=== PATIENT | female | born 1955 | race American Indian/Alaskan Native ===

== ENCOUNTER 2016-10-21 14:29 | Inpatient (IN) | payer MEDICARE, OTHER ==
[2016-10-21] MEDS ORDERED: Iohexol 240 (50 ml) PO ONE (14:42)
[2016-10-21] MEDS ORDERED: Sodium Chloride 0.9% 1,000 ML IV STA ×2 (14:45→21:39)
--- NOTE | 2016-10-21 14:50 | ED PDOC ---
HPI: Abdomen Time Seen by Provider: 10/21/16 14:30 Chief Complaint (Nursing): Abdominal Pain Chief Complaint (Provider): abd pain History Per: Patient History/Exam Limitations: no limitations Onset/Duration Of Symptoms: Days (2 weeks) Outside of [place] travel?: No Current Symptoms Are (Timing): Still Present Severity: Severe Location Of Pain/Discomfort: Epigastric (radiating to BUQ and back pain) Associated Symptoms: Chills, Nausea, Vomiting, Diarrhea, Loss Of Appetite, Back Pain. denies: Fever, Constipation, Urinary Symptoms Exacerbating Factors: Food Alleviating Factors: None Additional Complaint(s): vomiting nonbilious nonbloody intermittent for 2 weeks, diarrhea watery nonbloody, unable to tolerate food for 3 days Past Medical History Reviewed: Historical Data, Nursing Documentation, Vital Signs Vital Signs: Last Vital Signs Temp 98.9 F 10/21/16 14:30 Pulse 54 L 10/21/16 14:30 Resp 20 10/21/16 14:30 BP 128/65 10/21/16 14:30 Pulse Ox 98 10/21/16 20:28 - Medical History PMH: CAD (2 stents), Gastritis, Hepatitis, HIV, HTN, Hypercholesterolemia - Surgical History Surgical History: Cholecystectomy, Coronary Stent - Family History Family History: States: No Known Family Hx - Social History Current smoker - smoking cessation education provided: Yes Alcohol: None - Allergies Allergies/Adverse Reactions: Allergies Allergy/AdvReac Type Severity Reaction Status Date / Time dapsone Allergy Verified 10/21/16 14:47 Sulfa (Sulfonamide Allergy Verified 10/21/16 14:47 Antibiotics) Review of Systems ROS Statement: Except As Marked, All Systems Reviewed And Found Negative (and as per HPI) Constitutional: Positive for: Chills, Weakness, Malaise. Negative for: Fever Gastrointestinal: Positive for: Nausea, Vomiting, Abdominal Pain, Diarrhea. Negative for: Melena, Hematochezia, Hematemesis Genitourinary Female: Negative for: Dysuria, Frequency Musculoskeletal: Positive for: Back Pain Physical Exam - Reviewed Nursing Documentation Reviewed: Yes Vital Signs Reviewed: Yes - Physical Exam Appears: Positive for: Uncomfortable, In Acute Distress Head Exam: Positive for: ATRAUMATIC, NORMOCEPHALIC Skin: Positive for: Warm, Dry Eye Exam: Positive for: EOMI, PERRL ENT: Positive for: Other (dry muc membranes). Negative for: Pharyngeal Erythema , Tonsillar Exudate Neck: Positive for: Supple. Negative for: Limited ROM Cardiovascular/Chest: Positive for: Chest Non Tender, Bradycardia (regular rhythm). Negative for: Murmur Respiratory: Positive for: Normal Breath Sounds. Negative for: Respiratory Distress Gastrointestinal/Abdominal: Positive for: Bowel Sounds, Soft, Tenderness ( epigastric). Negative for: Mass, Distended, Guarding, Rebound Back: Positive for: Normal Inspection. Negative for: Vertebral Tenderness Extremity: Positive for: Normal ROM. Negative for: Pedal Edema, Deformity Lymphatic: Negative for: Adenopathy Neurologic/Psych: Positive for: Alert. Negative for: Motor/Sensory Deficits - Laboratory Results Result Diagrams: 10/21/16 16:00 10/21/16 16:00 - ECG O2 Sat by Pulse Oximetry: 98 Medical Decision Making Medical Decision Making: Pt with intractable vomiting, h/o HIV, and abnormality on CT for stomach mass v ulcer. Hospitalized for further evaluation and management. ED OBSERVATION - Observation admission statement Patient is being placed in observation because:: Time intensive workup and need for serial abdominal exams to exclude surgical condition - Goals of Observation Goals of observation are:: Completion of diagnostics, improvement of symptoms, and initiation of definitive care based on diagnostics, if possible - Progress Note Progress Note: Accession No. : [id number] Patient Name / ID : BILL MEEKS / [id number] Exam Date : 10/21/2016 18:57:05 ( Approved ) Study Comment : Sex / Age : F / 61Y Creator : Patti Rebolledo MD Dictator : Allied Health Instructor : Exam Proctor : Patti Rebolledo MD Approver2 : Report Date : 10/21/2016 20:14:00 My Comment : [facility] Division of Radiology [address] [place] [address] Tel. no. Patient Name: JEANNA KHAN Pt. Address: [address] [place] [address] 2 Med. Rec #: [id number] [place] [address]: Alonzo HAM, Bobbi Bowman Pt CELL Order Location: [place] : 1955 Female Age: 61 Order #: [id number] Reason for exam: Abd pain CT Scan ABD PELVIS PO CONTRAST ONLY Exam Date: 10/21/16 This imaging exam was performed at [facility] EXAM: CT Abdomen and Pelvis Without Intravenous Contrast CLINICAL HISTORY: 61 years old, female; Pain; Abdominal pain; Generalized; Additional info: Abd pain TECHNIQUE: Axial computed tomography images of the abdomen and pelvis without intravenous contrast. This CT exam was performed using one or more of the following dose reduction techniques: automated exposure control, adjustment of the mA and/or kV according to patient size, and/or use of iterative reconstruction technique. Coronal and sagittal reformatted images were created and reviewed. EXAM DATE/TIME: 10/21/2016 4:58 PM COMPARISON: Prior abdominal ultrasound of 08/25/2015 FINDINGS: LOWER THORAX: No infiltrate seen in the lung bases. ABDOMEN: LIVER: No acute abnormality of the liver identified. GALLBLADDER AND BILE DUCTS: Cholecystectomy clips.. PANCREAS: No CT evidence of acute pancreatitis. SPLEEN: No acute abnormality of the spleen identified. ADRENALS: No acute abnormality of the adrenal glands identified. KIDNEYS AND URETERS: Multiple hyperdense lesions in the kidneys bilaterally , too numerous to count, the largest of which is located in the left kidney, and measures 3 cm. These could represent hyperdense cysts, but cannot entirely rule out solid lesions. Recommend further evaluation with renal ultrasound or renal protocol CT or MRI, on a nonemergent basis. Bilateral renal scarring. No evidence of hydroureteronephrosis. STOMACH AND BOWEL: Best seen on image 72 of series 602, there is a 2.5 cm, round, masslike area containing air within it centrally, located posterior to the wall of the distal stomach. This appears separate from the duodenal bulb. It has a thick wall, and there is mild infiltration of the adjacent fat. This is suspicious for a posterior gastric ulcer. There is no evidence of free air/perforation. 2.6 cm round, well-defined, fat density lesion in the lumen of the descending colon, most likely representing a large lipoma. This does not appear to be causing obstruction. Otherwise, no significant abnormality of the bowel is identified. No evidence of small bowel obstruction. No evidence of diverticulitis. APPENDIX: Appendix is seen, and is within normal limits in appearance. PELVIS: BLADDER: No acute abnormality of the bladder identified. REPRODUCTIVE: 2.2 cm fluid density ovarian/adnexal cystic lesion. This has a benign appearance by CT. No followup is warranted based on the imaging findings, unless otherwise clinically indicated. Multiple uterine calcifications, most likely secondary to fibroids. ABDOMEN and PELVIS: INTRAPERITONEAL SPACE: No evidence of free air or free fluid. BONES/JOINTS: No acute fractures or other acute bony abnormality noted. SOFT TISSUES: No acute abnormality of the visualized soft tissues is seen. VASCULATURE: No evidence of abdominal aortic aneurysm. No evidence of periaortic hemorrhage. LYMPH NODES: No evidence of diffuse lymphadenopathy. IMPRESSION: - Findings suspicious for a small posterior gastric ulcer, with adjacent mild inflammation. There is no evidence of free air/ulcer perforation. Recommend clinical correlation. - Otherwise, no evidence of significant acute process. - Incidental multiple, bilateral indeterminate hyperdense renal lesions. See above. - See above for remaining findings. Dictated By: Patti Rebolledo MD Dictated Date/Time: 10/21/162013 Signed By: Patti Rebolledo MD Date Signed: 2013 Transcribed By: ANDREW Transcribe Date/Time : 10/21/162013 [id number]/STANLEY MELÉNDEZ pt findings and plan of care RIKA NORMAN resident for hospitalization Disposition - Clinical Impression Clinical Impression: Abdominal pain, Intractable vomiting - Disposition Disposition Time: 15:00 Condition: GUARDED - Pt Status Changed To: Hospital Disposition Of: Inpatient - Admit Certification Admit to Inpatient:: After my assessment, the patient will require hospitalization for at least two midnights. This is because of the severity of symptoms shown, intensity of services needed, and/or the medical risk in this patient being treated as an outpatient. - POA Present On Arrival: None
[2016-10-21 16:23] LABS: BASO # 0.1 K/uL (0.0-0.2); BASO % 0.8 % (0.0-2.0); EOS % 0.4 % (0.0-4.0); HEMATOCRIT 35.4 % (34.0-47.0); LYMPH # 2.1 K/uL (1.0-4.3); LYMPH % 26.9 % (20.0-40.0); MEAN CELL VOLUME 91.6 fl (81.0-99.0); MEAN CORPUSCULAR HEMOGLOBIN 29.8 pg (27.0-31.0); MEAN CORPUSCULAR HGB CONC 32.5 g/dL (33.0-37.0); MEAN PLATELET VOLUME 9.1 fl (7.2-11.7); MONO # 0.7 K/uL (0.0-0.8); MONO % 8.5 % (0.0-10.0); NEUT # 4.9 K/uL (1.8-7.0); NEUT % 63.4 % (50.0-75.0); RED CELL DISTRIBUTION WIDTH 14.5 % (11.5-14.5); WHITE BLOOD COUNT 7.7 K/uL (4.8-10.8)
[2016-10-21 16:33] LABS: VENOUS BLOOD GAS BASE EXCESS 5.1 mmol/L (0.0-2.0); VENOUS BLOOD GAS PCO2 47 mmHg (40-60); VENOUS BLOOD PH 7.42 (7.32-7.43)
[2016-10-21 16:36] LABS: PARTIAL THROMBOPLASTIN TIME 31.2 Seconds (25.6-37.1)
[2016-10-21 16:37] LABS: BILIRUBIN,TOTAL 0.6 mg/dl (0.2-1.3); CALCIUM 10.4 mg/dL (8.4-10.2); MAGNESIUM 1.9 MG/DL (1.6-2.3); PHOSPHOROUS 2.9 mg/dl (2.5-4.5); POTASSIUM 3.7 MMOL/L (3.6-5.0); TOTAL PROTEIN 8.1 G/DL (6.3-8.2)
[2016-10-21] MEDS ORDERED: Iohexol 240 (50 ml) ONE (16:37)
[2016-10-21 17:06] LABS: THYROID STIMULATING HORMONE 1.82 mIU/ML (0.46-4.68)
--- NOTE | 2016-10-21 20:14 | CT ---
EXAM: CT Abdomen and Pelvis Without Intravenous Contrast CLINICAL HISTORY: 61 years old, female; Pain; Abdominal pain; Generalized; Additional info: Abd pain TECHNIQUE: Axial computed tomography images of the abdomen and pelvis without intravenous contrast. This CT exam was performed using one or more of the following dose reduction techniques: automated exposure control, adjustment of the mA and/or kV according to patient size, and/or use of iterative reconstruction technique. Coronal and sagittal reformatted images were created and reviewed. EXAM DATE/TIME: 10/21/2016 4:58 PM COMPARISON: Prior abdominal ultrasound of 08/25/2015 FINDINGS: LOWER THORAX: No infiltrate seen in the lung bases. ABDOMEN: LIVER: No acute abnormality of the liver identified. GALLBLADDER AND BILE DUCTS: Cholecystectomy clips.. PANCREAS: No CT evidence of acute pancreatitis. SPLEEN: No acute abnormality of the spleen identified. ADRENALS: No acute abnormality of the adrenal glands identified. KIDNEYS AND URETERS: Multiple hyperdense lesions in the kidneys bilaterally, too numerous to count, the largest of which is located in the left kidney, and measures 3 cm. These could represent hyperdense cysts, but cannot entirely rule out solid lesions. Recommend further evaluation with renal ultrasound or renal protocol CT or MRI, on a nonemergent basis. Bilateral renal scarring. No evidence of hydroureteronephrosis. STOMACH AND BOWEL: Best seen on image 72 of series 602, there is a 2.5 cm, round, masslike area containing air within it centrally, located posterior to the wall of the distal stomach. This appears separate from the duodenal bulb. It has a thick wall, and there is mild infiltration of the adjacent fat. This is suspicious for a posterior gastric ulcer. There is no evidence of free air/perforation. 2.6 cm round, well-defined, fat density lesion in the lumen of the descending colon, most likely representing a large lipoma. This does not appear to be causing obstruction. Otherwise, no significant abnormality of the bowel is identified. No evidence of small bowel obstruction. No evidence of diverticulitis. APPENDIX: Appendix is seen, and is within normal limits in appearance. PELVIS: BLADDER: No acute abnormality of the bladder identified. REPRODUCTIVE: 2.2 cm fluid density ovarian/adnexal cystic lesion. This has a benign appearance by CT. No followup is warranted based on the imaging findings, unless otherwise clinically indicated. Multiple uterine calcifications, most likely secondary to fibroids. ABDOMEN and PELVIS: INTRAPERITONEAL SPACE: No evidence of free air or free fluid. BONES/JOINTS: No acute fractures or other acute bony abnormality noted. SOFT TISSUES: No acute abnormality of the visualized soft tissues is seen. VASCULATURE: No evidence of abdominal aortic aneurysm. No evidence of periaortic hemorrhage. LYMPH NODES: No evidence of diffuse lymphadenopathy. IMPRESSION: - Findings suspicious for a small posterior gastric ulcer, with adjacent mild inflammation. There is no evidence of free air/ulcer perforation. Recommend clinical correlation. - Otherwise, no evidence of significant acute process. - Incidental multiple, bilateral indeterminate hyperdense renal lesions. See above. - See above for remaining findings.
--- NOTE | 2016-10-21 21:51 | CP.PCM.HP ---
History of Present Illness - History of Present Illness History of Present Illness: Pt. presents to the emergency room with complaint of abdominal pain. Pt. was sent to the emergency department by PMD because of abdominal pain. Pt. states abdominal pain started two weeks ago, localized in the epigastric area, radiating to RT. and LT. upper quadrants. Pt. reports had one episode of vomiting this morning described as greenish yellowish in color and two episodes of watery diarrhea. Associated symptoms include weight loss of 20lbs over past 2 months and loss of appetite. Pt. states most of her symptoms have been present for approximately 2 months but abdominal pain started 2 weeks ago. ON ROS, Pt. denies any dysphasia, hemoptysis, hematemesis, fever, or chills. Pt. reports other symptoms of feeling lightheaded, weakness that is generalized, . Pt denies any sick contacts, recent travel, or alcohol use. Pt. also reports was given a referral for Colonoscopy but was unable to see GI as of yet. PMHx: HIV, HTN, Hyperlipidemia, Coronary Heart Disease, Hepatitis C, Chronic Kidney Disease Stage IV not on HD, Type II NIDDM, Gallstones, Renal Stones PSHx: Cardiac stent, Appendectomy, "Neck" surgery FMHx: Father at age 76 due complications from Colon Cancer Social: TOB- Social ETOH- Denies Drugs- Denies Allergies: Sulfa, Dapsone Home Meds: See Med List PMD: Dr. Waylon Parker Course 1- I.V. Fluids 2- Pepcid, Zofran, Morphine 3- CBC, CMP, UA, EKG CT Scan - ABD PELVIS PO CONTRAST ONLY Exam Date: 10/21/16 IMPRESSION: - Findings suspicious for a small posterior gastric ulcer, with adjacent mild inflammation. There is no evidence of free air/ulcer perforation. Recommend clinical correlation. - Otherwise, no evidence of significant acute process. - Incidental multiple, bilateral indeterminate hyperdense renal lesion. Present on Admission - Present on Admission Any Indicators Present on Admission: Yes History of DVT/PE: No History of Uncontrolled Diabetes: Yes Urinary Catheter: No Decubitus Ulcer Present: No Review of Systems - Review of Systems Review of Systems: See HPI Past Patient History - Past Social History Alcohol: None - CARDIAC Hx Hypercholesterolemia: Yes Hx Hypertension: Yes - HEMATOLOGICAL/ONCOLOGICAL Hx Human Immunodeficiency Virus (HIV): Yes - GASTROINTESTINAL Hx Gastritis: Yes - PSYCHIATRIC Hx Substance Use: No - SURGICAL HISTORY Hx Cholecystectomy: Yes Hx Coronary Stent: Yes Meds Allergies/Adverse Reactions: Allergies Allergy/AdvReac Type Severity Reaction Status Date / Time dapsone Allergy Verified 10/21/16 14:47 Sulfa (Sulfonamide Allergy Verified 10/21/16 14:47 Antibiotics) Physical Exam - Constitutional Appears: Non-toxic, No Acute Distress - Head Exam Head Exam: ATRAUMATIC, NORMOCEPHALIC - Eye Exam Eye Exam: PERRL. absent: Scleral icterus - ENT Exam ENT Exam: Mucous Membranes Moist, Normal Oropharynx - Neck Exam Neck exam: Positive for: Full Rom, Normal Inspection - Respiratory Exam Respiratory Exam: Clear to Auscultation Bilateral, NORMAL BREATHING PATTERN - Cardiovascular Exam Cardiovascular Exam: Bradycardia, +S1, +S2 - GI/Abdominal Exam GI & Abdominal Exam: Normal Bowel Sounds, Soft, Tenderness (+Positive Epigastric Area) - Extremities Exam Extremities exam: Positive for: pedal pulses present. Negative for: calf tenderness - Neurological Exam Neurological exam: Alert, Oriented x3 - Psychiatric Exam Psychiatric exam: Normal Affect, Normal Mood Results - Vital Signs Recent Vital Signs: Last Vital Signs Temp 98.9 F 10/21/16 14:30 Pulse 54 L 10/21/16 14:30 Resp 20 10/21/16 14:30 BP 128/65 10/21/16 14:30 Pulse Ox 98 10/21/16 20:28 - Labs Result Diagrams: 10/21/16 16:00 10/21/16 16:00 Labs: Laboratory Results - last 24 hr 10/21/16 10/21/16 10/21/16 16:00 16:00 16:00 WBC 7.7 RBC 3.86 Hgb 11.5 L Hct 35.4 MCV 91.6 MCH 29.8 MCHC 32.5 L RDW 14.5 Plt Count 159 MPV 9.1 Neut % (Auto) 63.4 Lymph % (Auto) 26.9 [place] % (Auto) 8.5 Eos % (Auto) 0.4 Baso % (Auto) 0.8 Neut # 4.9 Lymph # 2.1 [place] # 0.7 Eos # 0.0 Baso # 0.1 PT 12.8 INR 1.1 APTT 31.2 pO2 VBG pH VBG pCO2 VBG HCO3 VBG Total CO2 VBG O2 Sat (Calc) VBG Base Excess VBG Potassium Glucose Lactate FiO2 Sodium 140 Potassium 3.7 Chloride 105 Carbon Dioxide 26 Anion Gap 13 BUN 32 H Creatinine 2.6 H Est GFR ( Amer) 22 Est GFR (Non-Af Amer) 19 Random Glucose 77 Calcium 10.4 H Phosphorus 2.9 Magnesium 1.9 Total Bilirubin 0.6 AST 32 ALT 36 Alkaline Phosphatase 48 Lactate Dehydrogenase 433 Total Protein 8.1 Albumin 3.9 Globulin 4.1 H Albumin/Globulin Ratio 1.0 Amylase 124 H Lipase 172 TSH 3rd Generation 1.82 Venous Blood Potassium 10/21/16 16:30 WBC RBC Hgb Hct MCV MCH MCHC RDW Plt Count MPV Neut % (Auto) Lymph % (Auto) [place] % (Auto) Eos % (Auto) Baso % (Auto) Neut # Lymph # [place] # Eos # Baso # PT INR APTT pO2 8 L VBG pH 7.42 VBG pCO2 47 VBG HCO3 26.5 VBG Total CO2 31.9 H VBG O2 Sat (Calc) 34.4 L VBG Base Excess 5.1 H VBG Potassium 3.6 Glucose 78 Lactate 1.0 FiO2 21.0 Sodium 137.0 Potassium Chloride 107.0 Carbon Dioxide Anion Gap BUN Creatinine Est GFR ( Amer) Est GFR (Non-Af Amer) Random Glucose Calcium Phosphorus Magnesium Total Bilirubin AST ALT Alkaline Phosphatase Lactate Dehydrogenase Total Protein Albumin Globulin Albumin/Globulin Ratio Amylase Lipase TSH 3rd Generation Venous Blood Potassium 3.6 Assessment & Plan - Assessment and Plan (Free Text) Assessment: 61 y.o. female with PMHx of HIV, HCV, CAD, and Diabetes with abdominal pain of unclear etiology Abdominal Pain- of unclear etiology possibly due to Gastric ulcer CT Scan - ABD PELVIS PO CONTRAST ONLY Exam Date: 10/21/16 IMPRESSION: - Findings suspicious for a small posterior gastric ulcer, with adjacent mild inflammation. There is no evidence of free air/ulcer perforation. Recommend clinical correlation. - Otherwise, no evidence of significant acute process. - Incidental multiple, bilateral indeterminate hyperdense renal lesion. 1- Protonix 40mg I.V. daily 2- Zofran 4mg I.V. PRN 3- NPO & Normal Saline @ 100cc/hr 4- GI Consult - Dr. Thompson 5- BCx & UCx pending Vomiting & Diarrhea 1- C-diff toxin A&B 2- Zofran 4mg I.V. PRN 3- Protonix 40mg I.V. PRN 4- Normal Saline @ 100cc/hr 5- Stool Cx 6- O & P Type II DM- non-insulin dependent 1- Hold Januvia 50 mg secondary to Chronic Kidney Disease- if resume diet consider 25mg due to Chronic Kidney Disease 2- Continue Actose 30mg Diet 1- NPO 2- Normal Saline @ 100cc/hr Hypertension 1- Continue Losartan 100mg 2- Hold HCTHZ 12.5mg secondary to Chronic Kidney Disease HIV- Viral load < 20 from July 2016 1-Resume Prezista 800mg daily 2-Resume Norvir 100mg daily 3-Resume Tivica 50mg daily- Not in formulary Chronic Kidney Disease- Stage 4 not on HD 1- Repeat BMP 2- Continue Normal Saline @ 100cc/hr CAD 1- Lipitor 10mg qhs 2- Plavix- Hold pending GI evaluation for possible Endoscopy/Colonoscopy 3- Echocardiogram August 2014 Preserved EF HIV 1- Continue Darunavir 800mg 2- Continue Norvir 100mg 3- Tivicay - Not in Formulary- Hold for now DVT prophylaxis 1- SCD for now
[2016-10-21 22:01] LABS: RBC URINE 5 /hpf (0-3); URINE BACTERIA RARE (<OCC); URINE BILIRUBIN NEGATIVE (NEGATIVE); URINE BLOOD NEGATIVE (NEGATIVE); URINE COLOR AMBER (YELLOW); URINE GLUCOSE (UA) NEG (Normal); URINE KETONE TRACE mg/dL (NEGATIVE); URINE LEUKOCYTE ESTERASE SMALL Leu/uL (Negative); URINE PROTEIN 30 mg/dL (NEGATIVE); URINE UROBILINOGEN 0.2-1.0 mg/dL (0.2-1.0); WBC URINE 9 /hpf (0-5)
--- NOTE | 2016-10-21 23:41 | CARD ---
APPROVED REPORT EKG Measurement Heart [id number] <Conclusion> Sinus bradycardia Possible Left atrial enlargement Cannot rule out Inferior infarct, age undetermined Abnormal ECG
[2016-10-22] MEDS ORDERED: Dextrose 50% SYRINGE Inj (50 ml) IV PRN (06:58)
[2016-10-22] MEDS ORDERED: Glucagon Recombinant 1 mg Inj IM PRN (06:58)
[2016-10-22 07:28] LABS: HEMATOCRIT 32.5 % (34.0-47.0); MEAN CELL VOLUME 92.7 fl (81.0-99.0); MEAN CORPUSCULAR HEMOGLOBIN 29.8 pg (27.0-31.0); MEAN CORPUSCULAR HGB CONC 32.2 g/dL (33.0-37.0); RED CELL DISTRIBUTION WIDTH 14.8 % (11.5-14.5); WHITE BLOOD COUNT 5.9 K/uL (4.8-10.8)
[2016-10-22 07:50] LABS: CALCIUM 9.2 mg/dL (8.4-10.2); POTASSIUM 4.1 MMOL/L (3.6-5.0)
[2016-10-22] MEDS ORDERED: DARUNAVIR ETHANOLATE PO SCH (09:00)
[2016-10-22] MEDS: Sodium Chloride 0.9% 1,000 ML IV SCH ×2 (10:07→17:04)
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
[2016-10-22] MEDS: Insulin Regular 100 units/ml SC SCH ×4 (10:11→22:26)
[2016-10-22] MEDS: Multivitamin Vitamin B Complex (Nephro-Vite) Tab PO SCH (15:40)
[2016-10-22] MEDS: Nystatin 100,000 Units/ml Oral Susp 5 ml UD PO SCH (15:41)
--- NOTE | 2016-10-22 20:49 | CON ---
DATE: 10/22/2016 REFERRING PHYSICIAN: Dr. Cori Dye. REASON FOR CONSULTATION: Abdominal pain. HISTORY OF PRESENT ILLNESS: This is a 61-year-old female with history of hypertension, HIV, hyperlip idemia, coronary artery disease, hep C, chronic kidney disease, diabetes, essentially comes in for ab dominal pain and discomfort. This was about 2 weeks ago with some radiation to the epigastric region . No heartburn or reflux. No pain. Some diarrhea and nausea. Otherwise, no recent travels or sick contacts. Currently lying in bed, comfortable, in no apparent distress. PAST MEDICAL HISTORY: As above. PAST SURGICAL HISTORY: As above. MEDICATIONS: Have been reviewed. REVIEW OF SYSTEMS: All the rest of the systems have been reviewed and negative, apart from the HPI. PHYSICAL EXAMINATION: VITAL SIGNS: Grossly unremarkable . GENERAL: This is a pleasant, elderly-appearing female lying in bed, comfortable, in no apparent dist ress. HEENT: Head normocephalic, atraumatic. Eyes: Pupils equally reactive to light bilaterally. No co njunctival pallor or icterus. NECK: Supple, normal range of motion. No lymphadenopathy appreciated. LUNGS: Coarse breath sounds bilaterally. HEART: S1, S2. Regular rate and rhythm. No murmurs appreciated. ABDOMEN: Soft, nontender. Bowel sounds present. No rebound, no guarding. RECTAL: Deferred. EXTREMITIES: Pulses present bilaterally. SKIN: Warm, dry and intact. NEUROLOGIC: Alert and oriented x 3. LABORATORY DATA: All labs available have been reviewed. Labs include WBC of 5.9, hemoglobin 10.5, B UN , creatinine 0.7. IMAGING: CAT scan is a noncontrast study, shows a small posterior gastric ulcer with some mild infla mmation and some stranding. No free air noted. ASSESSMENT AND PLAN: This is a 61-year-old female with discomfort and some diarrhea. From a G I standpoint diarrhea workup is pending with stool studies including C. diff. From a GI standpoint, r ecommend PPI twice a day for now. Will recommend endoscopy at some point; however, the stranding in the area of the ulcer is a little bit concerning for possible early perforation, although not y et, so would recommend delaying endoscopy for at least a week or so to prevent any further complicati ons. The patient will follow up with me in the office for endoscopy and colonoscopy. Clear li quid diet for now that is tolerated. Thank you for the consult. Thony Bentley MD, PhD cc:Cori Dye MD [id number] TT: 10/22/2016 20:49:15 Confirmation # [id number] Dictation # [id number] mn
[2016-10-23 08:24] VITALS: TEMP 98.6
[2016-10-23] MEDS: Insulin Regular 100 units/ml SC SCH ×2 (08:24→13:02)
--- NOTE | 2016-10-23 08:27 | CP.PCM.PN ---
Objective - Vital Signs/Intake and Output Vital Signs (last 24 hours): Temp Pulse Resp BP Pulse Ox 98.6 F 54 L 19 105/70 98 10/23/16 08:22 10/23/16 08:22 10/23/16 08:22 10/23/16 08:22 10/23/16 08:22 - Medications Medications: Current Medications Atorvastatin Calcium (Lipitor) 10 mg PO DAILY [facility] Last Admin: 10/22/16 09:15 Dose: Not Given Clopidogrel Bisulfate (Plavix) 75 mg PO DAILY [facility] Darunavir (Prezista) 800 mg PO DAILY [facility] Last Admin: 10/22/16 15:45 Dose: 800 mg Dextrose (Glutose 15) 0 gm PO ONCE PRN; Protocol PRN Reason: Hypoglycemia Protocol Dextrose (Dextrose 50% Inj) 0 ml IV STAT PRN; Protocol PRN Reason: Hyglycemia Protocol Dolutegravir Sodium (Tivicay) 50 mg PO ONCE [facility] Glucagon (Glucagen Diagnostic Kit) 0 mg IM STAT PRN; Protocol PRN Reason: Hypoglycemia Protocol Hydrochlorothiazide (Microzide) 12.5 mg PO DAILY [facility] Insulin Human Regular (Humulin R) 0 units SC ACHS [facility] PRN Reason: Protocol Last Admin: 10/22/16 22:26 Dose: Not Given Losartan Potassium (Cozaar) 100 mg PO DAILY [facility] Last Admin: 10/22/16 09:15 Dose: Not Given Nystatin (Nystatin Oral Susp) 5 ml PO QID [facility] Last Admin: 10/22/16 15:41 Dose: 5 ml Ondansetron HCl (Zofran Inj) 4 mg IVP Q6 PRN PRN Reason: Nausea/Vomiting Pantoprazole Sodium (Protonix Inj) 40 mg IVP Q12 [facility] Last Admin: 10/22/16 23:11 Dose: Not Given Pioglitazone HCl (Actos) 30 mg PO DAILY [facility] Ritonavir (Norvir) 100 mg PO DAILY [facility] Last Admin: 10/22/16 15:40 Dose: 100 mg Sitagliptin Phosphate (Januvia) 50 mg PO DAILY [facility] Vitamin B Complex/Vit C/Folic Acid (Nephro-Morelia) 1 tab PO DAILY [facility] Last Admin: 10/22/16 15:40 Dose: 1 tab - Labs Labs: 10/22/16 07:16 10/22/16 07:16 PT 12.8 Seconds (9.8-13.1) 10/21/16 16:00 INR 1.1 (0.9-1.2) 10/21/16 16:00 APTT 31.2 Seconds (25.6-37.1) 10/21/16 16:00
[2016-10-23] MEDS: Multivitamin Vitamin B Complex (Nephro-Vite) Tab PO SCH (09:39)
[2016-10-23] MEDS: Nystatin 100,000 Units/ml Oral Susp 5 ml UD PO SCH ×2 (09:40→15:30)
--- NOTE | 2016-10-23 16:57 | CP.PCM.DIS ---
Provider - Provider Date of Admission: 10/21/16 14:52 Attending physician: Cori Dye MD Primary care physician: Dr. Connors Consults: Dr. Bentley- Gastroenterology Time Spent in preparation of Discharge (in minutes): 30 Diagnosis - Discharge Diagnosis (1) Abdominal pain Status: Resolved Priority: Medium (2) Intractable vomiting Status: Resolved Priority: Medium Hospital Course - Lab Results Lab Results: Micro Results 10/21/16 16:00 Blood-Venous Blood Culture - Preliminary NO GROWTH AFTER 48 HOURS 10/21/16 16:15 Blood-Venous Blood Culture - Preliminary NO GROWTH AFTER 48 HOURS 10/21/16 21:46 Urine,Clean Catch Urine Culture - Final No Growth (<1,000 CFU/ML) Most Recent Lab Values WBC 5.9 K/uL (4.8-10.8) 10/22/16 07:16 RBC 3.51 Mil/uL (3.80-5.20) L 10/22/16 07:16 Hgb 10.5 g/dL (12.0-16.0) L 10/22/16 07:16 Hct 32.5 % (34.0-47.0) L 10/22/16 07:16 MCV 92.7 fl (81.0-99.0) 10/22/16 07:16 MCH 29.8 pg (27.0-31.0) 10/22/16 07:16 MCHC 32.2 g/dL (33.0-37.0) L 10/22/16 07:16 RDW 14.8 % (11.5-14.5) H 10/22/16 07:16 Plt Count 141 K/uL (130-400) 10/22/16 07:16 MPV 9.1 fl (7.2-11.7) 10/21/16 16:00 Neut % (Auto) 63.4 % (50.0-75.0) 10/21/16 16:00 Lymph % (Auto) 26.9 % (20.0-40.0) 10/21/16 16:00 [place] % (Auto) 8.5 % (0.0-10.0) 10/21/16 16:00 Eos % (Auto) 0.4 % (0.0-4.0) 10/21/16 16:00 Baso % (Auto) 0.8 % (0.0-2.0) 10/21/16 16:00 Neut # 4.9 K/uL (1.8-7.0) 10/21/16 16:00 Lymph # 2.1 K/uL (1.0-4.3) 10/21/16 16:00 [place] # 0.7 K/uL (0.0-0.8) 10/21/16 16:00 Eos # 0.0 K/uL (0.0-0.7) 10/21/16 16:00 Baso # 0.1 K/uL (0.0-0.2) 10/21/16 16:00 PT 12.8 Seconds (9.8-13.1) 10/21/16 16:00 INR 1.1 (0.9-1.2) 10/21/16 16:00 APTT 31.2 Seconds (25.6-37.1) 10/21/16 16:00 pO2 8 mm/Hg (30-55) L 10/21/16 16:30 VBG pH 7.42 (7.32-7.43) 10/21/16 16:30 VBG pCO2 47 mmHg (40-60) 10/21/16 16:30 VBG HCO3 26.5 mmol/L 10/21/16 16:30 VBG Total CO2 31.9 mmol/L (22-28) H 10/21/16 16:30 VBG O2 Sat (Calc) 34.4 % (40-65) L 10/21/16 16:30 VBG Base Excess 5.1 mmol/L (0.0-2.0) H 10/21/16 16:30 VBG Potassium 3.6 mmol/L (3.6-5.2) 10/21/16 16:30 Sodium 137.0 mmol/L (132-148) 10/21/16 16:30 Chloride 107.0 mmol/L (98-107) 10/21/16 16:30 Glucose 78 mg/dL (65-105) 10/21/16 16:30 Lactate 1.0 mmol/L (0.7-2.1) 10/21/16 16:30 FiO2 21.0 % 10/21/16 16:30 Sodium 140 mmol/l (132-148) 10/22/16 07:16 Potassium 4.1 MMOL/L (3.6-5.0) 10/22/16 07:16 Chloride 106 mmol/L (98-107) 10/22/16 07:16 Carbon Dioxide 26 mmol/L (22-30) 10/22/16 07:16 Anion Gap 12 (10-20) 10/22/16 07:16 BUN 30 mg/dl (7-17) H 10/22/16 07:16 Creatinine 2.6 mg/dL (0.7-1.2) H 10/22/16 07:16 Est GFR ( Amer) 10/22/16 07:16 Est GFR (Non-Af Amer) 10/22/16 07:16 POC Glucose (mg/dL) 105 mg/dL (65-110) 10/23/16 08:17 Random Glucose 81 mg/dL (65-105) 10/22/16 07:16 Calcium 9.2 mg/dL (8.4-10.2) 10/22/16 07:16 Phosphorus 2.9 mg/dl (2.5-4.5) 10/21/16 16:00 Magnesium 1.9 MG/DL (1.6-2.3) 10/21/16 16:00 Total Bilirubin 0.6 mg/dl (0.2-1.3) 10/21/16 16:00 AST 32 U/L (14-36) 10/21/16 16:00 ALT 36 U/L (9-52) 10/21/16 16:00 Alkaline Phosphatase 48 U/L (38-126) 10/21/16 16:00 Lactate Dehydrogenase 433 U/L (313-618) 10/21/16 16:00 Total Protein 8.1 G/DL (6.3-8.2) 10/21/16 16:00 Albumin 3.9 g/dL (3.5-5.0) 10/21/16 16:00 Globulin 4.1 gm/dL (2.2-3.9) H 10/21/16 16:00 Albumin/Globulin Ratio 1.0 (1.0-2.1) 10/21/16 16:00 Amylase 124 U/L (30-110) H 10/21/16 16:00 Lipase 172 U/L (23-300) 10/21/16 16:00 TSH 3rd Generation 1.82 mIU/ML (0.46-4.68) 10/21/16 16:00 Venous Blood Potassium 3.6 mmol/L (3.6-5.2) 10/21/16 16:30 Urine Color Nayla (YELLOW) 10/21/16 21:46 Urine Clarity Cloudy (Clear) 10/21/16 21:46 Urine pH 5.0 (5.0-8.0) 10/21/16 21:46 Ur Specific [place] 1.017 (1.003-1.030) 10/21/16 21:46 Urine Protein 30 mg/dL (NEGATIVE) 10/21/16 21:46 Urine Glucose (UA) Neg mg/dL (Normal) 10/21/16 21:46 Urine Ketones Trace mg/dL (NEGATIVE) 10/21/16 21:46 Urine Blood Negative (NEGATIVE) 10/21/16 21:46 Urine Nitrate Negative (NEGATIVE) 10/21/16 21:46 Urine Bilirubin Negative (NEGATIVE) 10/21/16 21:46 Urine Urobilinogen 0.2-1.0 mg/dL (0.2-1.0) 10/21/16 21:46 Ur Leukocyte Esterase Small Sukhdev/uL (Negative) 10/21/16 21:46 Urine RBC (Auto) 5 /hpf (0-3) H 10/21/16 21:46 Urine Microscopic WBC 9 /hpf (0-5) H 10/21/16 21:46 Ur Squamous Epith Cells 20 /hpf (0-5) H 10/21/16 21:46 Urine Bacteria Rare (<OCC) 10/21/16 21:46 Hyaline Casts 3-5 /hpf (0-2) H 10/21/16 21:46 Blood Type A POSITIVE 10/22/16 07:16 Antibody Screen Negative 10/22/16 07:16 BBK History Checked Patient has bt 10/22/16 07:16 - Hospital Course Hospital Course: 61 yr old F admitted for abdominal pain, vomiting and diarrhea with Abd/Pelvis CT finding of small posterior gastric ulcer, with PMHx of HTN, HIV, Chronic Hep C, CAD s/p 2 stents, NIDDM, CKD stage 4 not on HD. Patient has unintentional weight loss of 20 lbs over past 3 months. GI evaluated patient, recommended PPI Q12 and delay endoscopy and colonoscopy for at least 1 week to prevent complication. Patient remained stable, tolerated PO diet. Patient will follow up with her PMD Dr. Connors, cardiology Dr. Petty, and GI Dr. Bentley. Patient was discharged on adjusted dose of Cozaar to 50mg PO QD, Protonix 40mg PO Q12, Nystatin suspension swish and swallow x 10 days, (we discontinued her hydrochlorothiazide, actos and januvia), she is to resume the rest of her home meds. - Date & Time of H&P Date of H&P: 10/21/16 Time of H&P: 21:51 Discharge Exam - Head Exam Head Exam: ATRAUMATIC, NORMOCEPHALIC - Eye Exam Eye Exam: EOMI, PERRL - ENT Exam ENT Exam: Mucous Membranes Moist. absent: Normal Oropharynx (oral thrush ) - Neck Exam Neck exam: Full Rom - Respiratory Exam Respiratory Exam: Clear to PA & Lateral, NORMAL BREATHING PATTERN - Cardiovascular Exam Cardiovascular Exam: REGULAR RHYTHM, +S1, +S2 - GI/Abdominal Exam GI & Abdominal Exam: Normal Bowel Sounds. absent: Distended, Soft - Extremities Exam Extremities exam: full ROM - Back Exam Back exam: absent: CVA tenderness (L), CVA tenderness (R) - Neurological Exam Neurological exam: Alert, CN II-XII Intact, Normal Gait, Oriented x3 - Psychiatric Exam Psychiatric exam: Normal Affect, Normal Mood - Skin Skin Exam: Dry, Intact, Warm Discharge Plan - Discharge Medications Prescriptions: Nystatin [Nystatin Oral Susp] 1 bottle PO QID #1 udc - Follow Up Plan Condition: GUARDED Disposition: HOME/ ROUTINE Instructions: Peptic Ulcer (DC), Abdominal Pain (ED) Additional Instructions: Patient to follow up with GI in 1-2 weeks Patient to discontinue Hydrochlorothiazide, Januvia, and Actos Patient to discontinue current dose of Cozaar and start taking new dose of Cozaar 50 mg. Patient to have bland diet. Patient to take Protonix 40 mg BID Follow up with PMD in 2-3 days Referrals: Thony Bentley MD, PhD [Staff Provider] - Jeremy Connors MD [Family Provider] -
[2016-10-23 17:32] VITALS: BP 138/84; PULSE 73; RESP 18; O2SAT 97
--- NOTE | 2016-10-23 21:42 | CP.PCM.PN ---
Subjective - Date & Time of Evaluation Date of Evaluation: 10/23/16 Time of Evaluation: 15:50 - Subjective Subjective: doing well Objective - Vital Signs/Intake and Output Vital Signs (last 24 hours): Temp Pulse Resp BP Pulse Ox 98.6 F 73 18 138/84 97 10/23/16 17:32 10/23/16 17:32 10/23/16 17:32 10/23/16 17:32 10/23/16 17:32 - Labs Labs: 10/22/16 07:16 10/22/16 07:16 PT 12.8 Seconds (9.8-13.1) 10/21/16 16:00 INR 1.1 (0.9-1.2) 10/21/16 16:00 APTT 31.2 Seconds (25.6-37.1) 10/21/16 16:00 - GI/Abdominal Exam GI & Abdominal Exam: Soft, Normal Bowel Sounds Assessment and Plan - Assessment and Plan (Free Text) Assessment: 61 yo female with abd pain tolerating diet ppi no pain egd in 1-2 weeks dc planning
== END 2016-10-23 18:28 | disposition home or self-care (01) | DRG 977 ==
LOC: H.ER 14:29 → OBSVTOIN 14:52 → H.EROBSV 14:52 → H.ERHOLD 20:32
PROVIDERS: ADMIT Family Medicine Geriatric Medicine; ATTEND Family Medicine Geriatric Medicine
DX: B20 Human immunodeficiency virus [HIV] disease (principal); I10 Essential (primary) hypertension; R10.13 Epigastric pain; Z95.5 Presence of coronary angioplasty implant and graft; F17.200 Nicotine dependence, unspecified, uncomplicated; I25.10 Atherosclerotic heart disease of native coronary artery without angina pectoris